=== PATIENT | male | born 1950 | race Caucasian/White ===

== ENCOUNTER → 2019-05-13 | Day surgery (SDC) | payer MEDICARE ==
[2019-05-12 13:59] LABS: BASOPHILS % (AUTO) 0.4 % (0-1); EOSINOPHILS # (AUTO) 0.1 X10'3 (0-0.9); EOSINOPHILS % (AUTO) 1.8 % (0-6); LYMPHOCYTES # (AUTO) 1.4 X10'3 (1.1-4.8); LYMPHOCYTES % (AUTO) 30.2 % (21-51); MEAN CORPUSCULAR HEMOGLOBIN 29.4 PG (27.0-31.0); MEAN CORPUSCULAR HGB CONC 33.3 g/dL (33.0-36.5); MEAN CORPUSCULAR VOLUME 88.1 FL (78-98); MEAN PLATELET VOLUME 8.9 FL (7.4-10.4); MONOCYTES # (AUTO) 0.5 X10'3 (0-0.9); MONOCYTES % (AUTO) 10.2 % (2-12); NEUTROPHILS # (AUTO) 2.8 X10'3 (1.8-7.7); NEUTROPHILS % (AUTO) 57.4 % (42-75); PRE OP HEMATOCRIT 39.6 % (42.0-52.0); PRE OP HEMOGLOBIN 13.2 g/dL (14.0-17.9); PRE OP PLATELET COUNT 226 X10'3 (140-440); RED BLOOD COUNT 4.49 X10'6 (4.70-6.10); RED CELL DISTRIBUTION WIDTH 14.1 % (11.5-14.5)
[2019-05-12 14:15] LABS: ALBUMIN 3.5 G/DL (3.4-5.0); ALBUMIN/GLOBULIN RATIO 0.9 (1.1-1.5); ALKALINE PHOSPHATASE 50 IU/L (46-116); BLOOD UREA NITROGEN 18 MG/DL (7-18); CALCIUM 8.8 MG/DL (8.5-10.1); CHLORIDE 109 MMOL/L (99-107); CREATININE 1.06 MG/DL (0.60-1.10); PRE OP ANION GAP 8 (8-16); PRE OP AST 30 U/L (10-37); PRE OP BILIRUB, TOTAL 0.3 MG/DL (0.0-1.0); PRE OP GLUCOSE 97 MG/DL (70-104); PRE OP POTASSIUM 3.9 MMOL/L (3.4-5.1); PRE OP SODIUM 143 MMOL/L (135-145); TOTAL CARBON DIOXIDE 25.7 MMOL/L (24-32); TOTAL PROTEIN 7.2 G/DL (6.4-8.2); eGFR 69 ML/MIN
[2019-05-12 14:17] LABS: PRE OP ALT 148 U/L (30-65)
[2019-05-13] VITALS (9 sets, daily range): BP systolic 105–161; BP diastolic 58–86
[~2019-05-13] VITALS: Ht 172.7 cm; Wt 70.3 kg
[~2019-05-13] MED LIST: BUPIVAcaine/PF 2.5 mg/ml (0.25%) 30ml vial ONE; HYDROcodone/acetaminophen 10/325mg tab PO PRN; HYDROcodone/acetaminophen 5mg/325mg tablet PO PRN; LIDOcaine 1% 30ml preserv. free vial ONE; LIDOcaine 2% (20mg/ml) 5ml vial ONE; NO HOME MEDS; cefazolin/dext.iso 2gm/100ml 100 ML IV ONE; dexamethasone sod phosphate 4mg/ml inj. ONE; famotidine 20mg tablet PO ONE; fentaNYL/PF 50MCG/1 ML 2ML syringe IV PRN; fentaNYL/PF 50MCG/1 ML 2ML syringe ONE; hydrALAZINE 20mg/ml inj. IV PRN; labetalol 20mg/4ml (5mg/ml) syringe IV PRN; midazolam 2 mg/2 ml injection ONE; morphine 2 MG/ML inj. syringe IV PRN; morphine 4 MG/ML inj SYRINge IV PRN; ondansetron/PF 4mg/2ml inj IV PRN; propofol inj 20 ML IV ONE; ringers solution, lacted 1,000 ML IV SCH; rocuronium 10mg/ml inj IV ONE
--- NOTE | 2019-05-13 14:48 | NUR ---
Received from OR via RG , accompanied by Anesthesiologist RICK and report given by Anesthesiolgist. PATIENT WITH 20G PIV IN LEFT UE RUNNING LR AT 100. VSS. 10L MASK ON WITH 99% SATURATIONS. 3 ABDOMINAL BANDAIDS PRESENT. VSS. Addendum: 05/13/19 at 1510 by Manuel Queen RN, RN Amended: Links added.
--- NOTE | 2019-05-13 17:34 | NUR ---
ALL DC CRITERIA HAS BEEN MET. IV TAKEN OUT WITHOUT COMPLICATIONS. ALL INSTRUCTIONS COVERED AND ALL QUESTIONS ANSWERED. DRESSINGS CDI. OUT VIA WHEELCHAIR TO PERSONAL VEHICLE WHERE PATIENT WAS SECURED IN AND DRIVEN HOME BY FAMILY. UPON CALLED MD OSEI ORDERS RECEIVED TO PLACE BAY CATHETER 2' BLADDER SCAN OF [employer]. PLACED BAY CATHETER AND PROVIDED EDUCATION. Addendum: 05/13/19 at 1740 by Manuel Queen RN, RN Amended: Links added.
== END | disposition home or self-care (01) ==
LOC: PAS 10:15
PROVIDERS: ATTEND Surgery
DX: K40.90 Unilateral inguinal hernia, without obstruction or gangrene, not specified as recurrent (principal); Z82.3 Family history of stroke; Z83.3 Family history of diabetes mellitus; Z82.49 Family history of ischemic heart disease and other diseases of the circulatory system; Z80.9 Family history of malignant neoplasm, unspecified; Z82.61 Family history of arthritis
CPT/HCPCS: 36415; 49650; 80053; 82948; 85025; 93005; C1781; J1100; J2001; J2250; J2704; J3010; J3490; J7120; A4215; A4618

== ENCOUNTER → 2023-08-12 | Outpatient (CLI) | payer MEDICARE ==
[~2023-08-12] MED LIST changes: -BUPIVAcaine/PF 2.5 mg/ml (0.25%) 30ml vial ONE; -HYDROcodone/acetaminophen 10/325mg tab PO PRN; -HYDROcodone/acetaminophen 5mg/325mg tablet PO PRN; -LIDOcaine 1% 30ml preserv. free vial ONE; -LIDOcaine 2% (20mg/ml) 5ml vial ONE; -cefazolin/dext.iso 2gm/100ml 100 ML IV ONE; -dexamethasone sod phosphate 4mg/ml inj. ONE; -famotidine 20mg tablet PO ONE; -fentaNYL/PF 50MCG/1 ML 2ML syringe IV PRN; -fentaNYL/PF 50MCG/1 ML 2ML syringe ONE; -hydrALAZINE 20mg/ml inj. IV PRN; -labetalol 20mg/4ml (5mg/ml) syringe IV PRN; -midazolam 2 mg/2 ml injection ONE; -morphine 2 MG/ML inj. syringe IV PRN; -morphine 4 MG/ML inj SYRINge IV PRN; -ondansetron/PF 4mg/2ml inj IV PRN; -propofol inj 20 ML IV ONE; -ringers solution, lacted 1,000 ML IV SCH; -rocuronium 10mg/ml inj IV ONE
== END | disposition home or self-care (01) ==
LOC: RAD 12:39
PROVIDERS: ATTEND Family Medicine
DX: S99.922A Unspecified injury of left foot, initial encounter (principal); S89.91XA Unspecified injury of right lower leg, initial encounter; M89.48 Other hypertrophic osteoarthropathy, other site; M25.861 Other specified joint disorders, right knee; M25.761 Osteophyte, right knee; M11.261 Other chondrocalcinosis, right knee; M25.461 Effusion, right knee; I70.90 Unspecified atherosclerosis; M20.12 Hallux valgus (acquired), left foot; M19.072 Primary osteoarthritis, left ankle and foot; X58.XXXA Exposure to other specified factors, initial encounter; Y93.89 Activity, other specified; Y92.89 Other specified places as the place of occurrence of the external cause; Y99.8 Other external cause status
CPT/HCPCS: 73564; 73630

== ENCOUNTER 2023-09-09 17:24 | Emergency (ER) | payer MEDICARE ==
[~2023-09-09] VITALS: Ht 170.2 cm; Wt 70.0 kg
[2023-09-09 18:16] LABS: BASOPHILS % (AUTO) 0.6 % (0-1); EOSINOPHILS # (AUTO) 0.1 X10'3 (0-0.9); EOSINOPHILS % (AUTO) 0.9 % (0-6); HEMATOCRIT 33.5 % (42.0-52.0); HEMOGLOBIN 10.8 g/dl (14.0-17.9); LYMPHOCYTES # (AUTO) 1.4 X10'3 (1.1-4.8); LYMPHOCYTES % (AUTO) 20.3 % (21-51); MEAN CORPUSCULAR HEMOGLOBIN 26.6 PG (27.0-31.0); MEAN CORPUSCULAR HGB CONC 32.1 g/dL (33.0-36.5); MEAN CORPUSCULAR VOLUME 82.8 FL (78-98); MEAN PLATELET VOLUME 7.6 FL (7.4-10.4); MONOCYTES # (AUTO) 0.7 X10'3 (0-0.9); MONOCYTES % (AUTO) 10.5 % (2-12); NEUTROPHILS # (AUTO) 4.7 X10'3 (1.8-7.7); NEUTROPHILS % (AUTO) 67.7 % (42-75); PLATELET COUNT 362 X10'3 (140-440); RED BLOOD COUNT 4.05 X10'6 (4.70-6.10); RED CELL DISTRIBUTION WIDTH 15.1 % (11.5-14.5)
[2023-09-09 18:32] LABS: APTT 30 SECONDS (22-32); PROTHROMBIN TIME 10.3 SECONDS (9.0-12.0)
[2023-09-09 18:34] LABS: ALANINE AMINOTRANSFERASE 24 U/L (12-78); ALBUMIN 2.5 G/DL (3.4-5.0); ALBUMIN/GLOBULIN RATIO 0.5 (1.1-1.5); ALKALINE PHOSPHATASE 54 IU/L (46-116); ANION GAP 7 (8-16); ASPARTATE AMINO TRANSFERASE 15 U/L (10-37); BILIRUBIN,TOTAL 0.5 MG/DL (0.1-1.0); BLOOD UREA NITROGEN 18 MG/DL (7-18); BUN/CREATININE RATIO 15.7 (10.0-20.0); C-REACTIVE PROTEIN 6.43 MG/DL (0.0-0.5); CALCIUM 8.9 MG/DL (8.5-10.1); CHLORIDE 103 MMOL/L (99-107); CREATININE 1.15 MG/DL (0.60-1.10); GLUCOSE 99 MG/DL (70-104); POTASSIUM 4.1 MMOL/L (3.5-5.1); SODIUM 138 MMOL/L (135-145); TOTAL CARBON DIOXIDE 27.9 MMOL/L (24-32); TOTAL PROTEIN 7.6 G/DL (6.4-8.2); URIC ACID 6.9 MG/DL (3.5-7.2); eCRCL 54 ML/MIN; eGFR 63 ML/MIN
[2023-09-09] MEDS ORDERED: INDO-12 PO (19:33)
[2023-09-09] MEDS ORDERED: PRED20TA PO (19:33)
[2023-09-09 19:35] VITALS: BP 156/88; PULSE 58; TEMP 98.3; O2SAT 99
[2023-09-09] MEDS ORDERED: ACET-2615 PO (19:35)
[2023-09-09 19:47] VITALS: RESP 16
[2023-09-09] MEDS: ketorolac trometh. 30mg/ml inj. IM ONE (19:47)
[2023-09-09] MEDS: predniSONE 20 mg tablet PO ONE (19:47)
[2023-09-09] MEDS: triamcinolone acetonide 40mg/ml inj IM ONE (19:47)
[2023-09-09] MEDS: acetaminophen 325mg tablet PO ONE (19:47)
== END 2023-09-09 19:49 | disposition home or self-care (01) ==
LOC: ER 17:25
DX: M10.9 Gout, unspecified (principal); I10 Essential (primary) hypertension; Z79.899 Other long term (current) drug therapy
CPT/HCPCS: 36415; 73630; 80053; 84550; 85025; 85610; 85651; 85730; 86140; 93971; 96372; 99285; J1885; J3301; J7512

== ENCOUNTER 2024-08-14 13:42 | Emergency (ER) | payer MEDICARE ==
[~2024-08-14] VITALS: Ht 167.6 cm; Wt 66.7 kg
[~2024-08-14 13:42] MED LIST changes: +INDO-12 PO
[2024-08-14 13:44] VITALS: BP 142/69; TEMP 98.3
--- NOTE | 2024-08-14 15:38 | Physician Documentation ---
History of Present Illness ~ Chief Complaint: Extremity Swelling Stated Complaint: R HAND SWELLING Time Seen by MD: 15:25 Primary Medical Doctor: None HPI 34-year-old male presents to the ED with a complaint of 3-4 days of right wrist pain and swelling. He does report a history of having gout. Trauma denies any fevers reports pain with range of motion. He states his pain is primarily in the right wrist joint. Day of Onset: Aug 14, 2024 Tetanus within 5 years: No Medication Reconciliation Allergies: Coded Allergies: No Known Allergies (Unverified , 10/22/13) Scheduled Colchicine (Colchicine), 1 CAP PO DAILY Indomethacin (Indomethacin), 1 CAP PO Q8H Prednisone (Prednisone), 1 TAB PO BID Miscellaneous Medications Home Med List (No Home Medications), (Reported) Past Medical History Past Medical History: Seizures, Hypertension Past Surgical History: noncontributory Alcohol Use: Other Lives In: Home Review of Systems All Other Systems at this time: Reviewed and Negative ROS As stated above in the HPI, otherwise all systems are reviewed and negative. Physical Exam Vital Signs: Temperature: 98.3, Source: Oral, Heart Rate: 65, Respiratory Rate: 16, BP: 142/69, Pulse Oximetry: 100, Weight: 66.700 Oxygen Flow Rate: 0 Physical Exam General: Alert, no apparent distress. Extremities: decreased ROM right wrist, circumferential swelling , with erythema Neurologic: Oriented x4. Psychiatric: Normal mood and affect. Skin: Normal color, warm and dry. No edema, no ecchymosis. Progress Results/Orders Results/Orders Completed Orders - SETH KWAN NP Prednisone Tablet (Prednisone Tablet) (08/14/24 15:45) Ketorolac Trometh 15mg/Ml Vial (Toradol (08/14/24 15:45) Medications Received in ER Medications (Trade) Dose Ordered Sig/Georgie Route PRN Reason Start Time Stop Time Status Last Admin Dose Admin (predniSONE tablet) 20 mg ONCE ONCE PO 08/14/24 15:45 08/14/24 15:48 DC 08/14/24 16:04 20 MG (Toradol injection) 15 mg ONCE ONCE IM 08/14/24 15:45 08/14/24 15:49 DC 08/14/24 16:09 15 MG Vital Signs 08/14/24 08/14/24 08/14/24 08/14/24 13:44 15:33 16:09 16:29 Temp 98.3 Pulse 65 Resp 16 16 16 B/P (MAP) 142/69 Pulse Ox 100 O2 Flow Rate 0 08/14/24 16:30 Pulse 51 Resp 18 B/P (MAP) Pulse Ox 95 Medical Decision Making Findings Presents with clinical indications for gout. He says that he does have a primary care doc. takes care of him. Going to start him on a tapering dose of prednisone today along with colchicine. Daily meloxicam Departure Disposition: HOME / SELF CARE / HOMELESS Impression: Primary Impression: Edema Additional Impression: Gout Condition: Stable Discharge Instructions: Gout, [id number] Referrals: NO PRIMARY CARE PROVIDER (PCP) Prescriptions Colchicine (Colchicine) 0.6 Mg Capsule 1 CAP PO DAILY for 30 Days, #30 CAP 0 Refills Prov: SETH KWAN NP 08/14/24 Prednisone (Prednisone) 10 Mg Tablet 1 TAB PO BID for 5 Days, #10 TAB Prov: SETH KWAN NP 08/14/24 Education Educated: Patient Educated regarding: diagnosis Signature Scribe Signature: d Attestation: Scribed for Seth Kwan Computed Tomography Technologist by Seth Queen NP . 08/14/24 15:40 SETH KWAN NP Aug 14, 2024 15:38
[2024-08-14] MEDS ORDERED: COLC0.6C3 PO (15:40)
[2024-08-14] MEDS ORDERED: PRED10TA23 PO (15:40)
[2024-08-14] MEDS: predniSONE 20 mg tablet PO ONE (16:04)
[2024-08-14] MEDS: ketorolac trometh 15mg/ml vial 15 MG/ML ML IM ONE (16:09)
[2024-08-14 16:30] VITALS: PULSE 51; RESP 18; O2SAT 95
== END 2024-08-14 16:35 | disposition home or self-care (01) ==
LOC: ER 13:43
DX: M10.9 Gout, unspecified (principal); R60.9 Edema, unspecified; I10 Essential (primary) hypertension
CPT/HCPCS: 96372; 99283; J1885; J7512